=== PATIENT | female | born 1970 | race Caucasian/White ===

== ENCOUNTER 2025-09-08 09:25 | Emergency (ER) | payer MEDICARE, SELFPAY ==
[2025-09-08 09:52] VITALS: BP 161/98; PULSE 98; TEMP 36.6; O2SAT 100; BMI 20.7
[2025-09-08 10:50] VITALS: BP 156/94; PULSE 92; TEMP 37.1; O2SAT 98
--- NOTE | 2025-09-08 11:31 | ED.GENADUL1 ---
HPI HPI - General Adult General Chief complaint: Fever Stated complaint: FEVER Time Seen by Provider: 09/08/25 11:25 Source: patient Mode of arrival: walk-in Limitations: no limitations History of Present Illness HPI narrative: 54-year-old female presents for fever which began last night. She does not have a headache or cough or vomiting or abdominal pain. No dysuria. Separately she has a pimple on the left side of her face that she states she got from some bad make-up and she is worried about that because it was draining some pus. No known ill contacts. No shortness of breath. Related Data Home Medications ?Medication ?Instructions ?Recorded ?Confirmed aripiprazole 10 mg tablet 10 mg PO DAILY 09/08/25 09/08/25 estradiol 1 mg tablet 1 mg PO DAILY 09/08/25 09/08/25 lamotrigine 200 mg tablet 200 mg PO BID 09/08/25 09/08/25 metoprolol succinate 25 mg 25 mg PO DAILY 09/08/25 09/08/25 tablet,extended release 24 hr paroxetine HCl 40 mg tablet 40 mg PO DAILY 09/08/25 09/08/25 Previous Rx's ?Medication ?Instructions ?Recorded sulfamethoxazole 800 1 tab PO BID 10 days #20 tabs 09/08/25 mg-trimethoprim 160 mg tablet (Bactrim DS) Allergies Allergy/AdvReac Type Severity Reaction Status Date / Time shellfish derived Allergy Severe Anaphylaxis Verified 09/08/25 09:51 codeine AdvReac Severe Nausea Verified 09/08/25 09:51 Penicillins AdvReac Severe Nausea Verified 09/08/25 09:50 Review of Systems ROS Narrative A ten point review of systems is negative except as noted above. [facility] Medical History (Updated 09/08/25 @ 11:31 by Franklin Vivas MD) HTN (hypertension) ?I10 - Essential (primary) hypertension (ICD-10) Anxiety ?F41.9 - Anxiety disorder, unspecified (ICD-10) Social History Little interest or pleasure in doing things: not at all Feeling down, depressed, or hopeless: not at all Exam Narrative Exam Narrative: Nurses note and vital signs reviewed General:The patient appears well and in no apparent distress.Patient is resting comfortably on cart. Skin:Warm, dry, no pallor noted.There is no rash noted. Small pimple is noted on the left chin area. No abscess present. No drainage. Head:Normocephalic, atraumatic Eye: Normal conjunctiva, no drainage Ears, Nose, Mouth, and Throat: oral mucosa is moist. Nares patent. Cardiovascular:Regular Rate and Rhythm Respiratory:Patient is in no distress, no accessory muscle use, lungs are clear to auscultation, no wheezing, rales or rhonchi Back:non-tender GI: Soft and nontender Musculoskeletal: The patient has no evidence of calf tenderness, no pitting edema, symmetrical pulses noted bilaterally Neurological:A&O, normal speech Psychiatric:Cooperative Constitutional Vital Signs, click to edit/add: Last Vital Signs Temp 98.8 F 09/08/25 10:50 Pulse 92 H 09/08/25 10:50 Resp 16 09/08/25 10:50 BP 156/94 H 09/08/25 10:50 Pulse Ox 98 09/08/25 10:50 O2 Del Method Room Air 09/08/25 09:52 Course Vital Signs Vital signs: Vital Signs Temperature 97.9 F 09/08/25 09:52 Pulse Rate 98 H 09/08/25 09:52 Respiratory Rate 20 09/08/25 09:52 Blood Pressure 161/98 H 09/08/25 09:52 Pulse Oximetry 100 09/08/25 09:52 Oxygen Delivery Method Room Air 09/08/25 09:52 Temperature 98.8 F 09/08/25 10:50 Pulse Rate 92 H 09/08/25 10:50 Respiratory Rate 16 09/08/25 10:50 Blood Pressure 156/94 H 09/08/25 10:50 Pulse Oximetry 98 09/08/25 10:50 Oxygen Delivery Method Room Air 09/08/25 09:52 Medical Decision Making [facility] Narrative Medical decision making narrative: My clinical impression is that she has a viral illness and she was offered COVID and influenza test but does not feel that she needs them. Separately she has this pimple on her face and she is concerned about so she will be put on Bactrim. Treatment diagnosis and follow-up were discussed with the patient. Differential Diagnosis Differential Diagnosis: Viral illness, COVID, influenza Discharge Plan Discharge Chief Complaint: Fever Clinical Impression: Viral illness Patient Disposition: Home, Self-Care Prescriptions / Home Meds: New sulfamethoxazole-trimethoprim [Bactrim DS] 800-160 mg tablet 1 tab PO BID 10 Days Qty: 20 0RF No Action aripiprazole 10 mg tablet 10 mg PO DAILY estradiol 1 mg tablet 1 mg PO DAILY lamotrigine 200 mg tablet 200 mg PO BID metoprolol succinate 25 mg tablet extended release 24 hr 25 mg PO DAILY paroxetine HCl 40 mg tablet 40 mg PO DAILY Print Language: Mongolian Instructions: Viral Syndrome (ED) Referrals: Tamika Cintron [employer] [Primary Care Provider] - 1 week
== END 2025-09-08 11:47 | disposition home or self-care (01) ==
PROVIDERS: Emergency Provider Emergency Medicine; PCP Nurse Practitioner Family
DX: B34.9 Viral infection, unspecified (principal); R23.8 Other skin changes
CPT/HCPCS: 99283

== ENCOUNTER 2025-10-07 09:13 | Outpatient (OUT) | payer MEDICARE, SELFPAY ==
--- OUTSIDE RECORDS SUMMARY | 2025-10-07 09:16 | XMS_ITS | Clinical Summary ---
Author Organization [facility] Healthcare Address [address] [place] [address] Care Team Providers Care Film Processor Name Role Phone Vinnie Ibarra MD Primary Care Provider [phone] Allergies Active AllergyReactionsCriticalityNoted DateCommentsCodeineNausea Only,RashLow 05/08/2016Erythromycin Base05/08/2016 Other Reaction(s): Other CAN take ZITHROMAX....EES causes Dizziness, GI upset and fainting PenicillinsNausea Only,UjncTrz1605/08/2016Shellfish Protein-Containing Drug Ahbuxhpc08/16/2025 Medications MedicationSigDispense QuantityRefillsLast FilledStart DateEnd DateStatus ARIPiprazole (Abilify) 10 MG tablet Take 10 mg by mouth5Active cyclobenzaprine (Flexeril) 10 MG tablet Take 10 mg by mouth5Active estradiol (Estrace) 1 MG tablet 1 mg5Active lamoTRIgine (LaMICtal) 200 MG tablet Take 200 mg by mouth5Active LORazepam (Ativan) 0.5 MG tablet 0.5 mg5Active metoprolol succinate XL (Toprol-XL) 50 MG 24 hr tablet Take 50 mg by mouth5Active PARoxetine (Paxil) 40 MG tablet 40 mg5Active predniSONE (Deltasone) 10 MG tablet Indications:Low back pain, unspecified back pain laterality, unspecified chronicity, unspecified whether sciatica presentTake 5 tabs p.o. daily x3 days Take 4 tabs p.o. daily x3 days Take 3 tabs p.o. daily x3 days Take 2tabs p.o. daily x3 days Take 1 tab p.o. daily x3 days 45 tablet 5Active Active Problems No known active problems Social History Tobacco UseTypesPacks/DayYears UsedDateSmoking Tobacco: Every DayCigarettes Smokeless Tobacco: Never Tobacco Cessation:Ready to Q uit: Not Asked; Counseling Given: Not Answered Alcohol UseStandard Drinks/WeekCommentsYes0 (1 standard drink = 0.6 oz pure alcohol)beer ocassionallyCommentsUnknownSex and Gender InformationValue Date RecordedSex Assigned at BirthNot on fileLegal WvgDacytx49/10/2025 9:13 AM EDTGender IdentityNot on fileSexual OrientationNot on file Last Filed Vital Signs Vital SignReadingTime TakenCommentsBlood Pressure--Pulse--Temperature-- Respiratory Rate--Oxygen Saturation--Inhaled Oxygen Concentration--Gyrwfv73.9 kg (132 lb)02/04/2025 1:13 PM JQKPewnya110.6 cm (5' 6 )02/04/2025 1:13 PM EDTBody Mass Index21.31002/04/2025 1:13 PM EDT Plan of Treatment DateTypeDepartmentCare Team (Latest Contact Info)Xzjhqykgqhw39/28/2026 11:20 AM ESTOffice Visit [facility] [address] [place] [phone] Elvira Avila MD [address] [place] [address] Health MaintenanceDue DateLast DoneCommentsCT Przzpypyyaax98/26/1973FIT-DNA 1972FIT1972FOBT1972 0352Njgtahmuinubn55/26/1973Pap Smear1993 Cervical Cancer Rkdvgfkng51/26/2003HPV/Svyuke6311/16/2002COVID-19 Vaccine ( season)/06/2022, 11/12/2021, 03/01/2021, Additional history existsInfluenza Vaccine (#1)511, 08/24/2022, 11/12/2021, Additional history sorazoVwpmsucpx82/03/106319/12/2024, 12/16/2024, 04/02/2024, Additional history talyzxPmdaebhlhny73/27/933522/, 4Colorectal Cancer Kinslqcor09/27/2034Pneumococcal Vaccine: Pediatrics (0 to 5 Years) and At-Risk Patients (6 to 64 Years)Aged OutNo longer eligible based on patient's age to complete this topic Insurance Care Teams Team MemberRelationshipSpecialtyStart DateEnd Vinnie Ibarra MD [address] [place] [address] PCP - GeneralFamily Medicine01/29/25
== END 2025-10-07 09:14 | disposition home or self-care (01) ==
LOC: PST 09:13
PROVIDERS: PCP Nurse Practitioner Family; Visit Provider Surgery
DX: Z01.818 Encounter for other preprocedural examination (principal); K62.5 Hemorrhage of anus and rectum

== ENCOUNTER 2025-10-20 09:27 | Emergency (ER) | payer MEDICARE, MEDICAID, SELFPAY ==
[2025-10-20 09:36] VITALS: BP 149/89; PULSE 96; TEMP 36.8; O2SAT 98; BMI 21.0
--- NOTE | 2025-10-20 09:47 | ED.GENADUL1 ---
HPI HPI - General Adult General Chief complaint: Dizziness Stated complaint: DIZZY, NAUSEA, RINGING EARS Time Seen by Provider: 10/20/25 09:39 Source: patient Mode of arrival: walk-in History of Present Illness HPI narrative: 54-year-old female presents to the emergency department for pressure on the right side of the head. She has had it since last night. No trauma or fever. She has not had any sore throat or ear pain or cough or fever. She talked to her doctor who told her to come to the emergency department to get checked. Related Data Home Medications ?Medication ?Instructions ?Recorded ?Confirmed aripiprazole 10 mg tablet 10 mg PO DAILY 09/08/25 10/20/25 estradiol 1 mg tablet 1 mg PO DAILY 09/08/25 10/20/25 lamotrigine 200 mg tablet 200 mg PO BID 09/08/25 10/20/25 metoprolol succinate 25 mg 25 mg PO DAILY 09/08/25 10/20/25 tablet,extended release 24 hr paroxetine HCl 40 mg tablet 40 mg PO DAILY 09/08/25 10/20/25 cyclobenzaprine 10 mg tablet 10 mg PO Q8H 10/07/25 10/20/25 lorazepam 0.5 mg tablet 0.5 mg PO DAILY PRN anxiety 10/07/25 10/20/25 ibuprofen 600 mg tablet 600 mg PO Q8H PRN pain 10/20/25 10/20/25 Previous Rx's ?Medication ?Instructions ?Recorded amoxicillin 500 mg capsule 500 mg PO TID 10 days #30 caps 10/20/25 Allergies Allergy/AdvReac Type Severity Reaction Status Date / Time shellfish derived Allergy Severe Anaphylaxis Verified 10/20/25 09:35 erythromycin base Allergy nausea, Verified 10/20/25 09:35 syncope sulfamethoxazole (From Allergy Abdominal Verified 10/20/25 09:35 Bactrim) Pain trimethoprim (From Bactrim) Allergy Abdominal Verified 10/20/25 09:35 Pain codeine AdvReac Severe Nausea Verified 10/20/25 09:35 Penicillins AdvReac Severe Nausea Verified 10/20/25 09:35 Review of Systems ROS Narrative A ten point review of systems is negative except as noted above. [facility] History (Updated 10/20/25 @ 10:33 by Franklin Vivas MD) Seizure ?R56.9 - Unspecified convulsions (ICD-10) Rectal bleeding ?K62.5 - Hemorrhage of anus and rectum (ICD-10) Fibromyalgia ?M79.7 - Fibromyalgia (ICD-10) Back pain ?M54.9 - Dorsalgia, unspecified (ICD-10) Arthritis ?M19.90 - Unspecified osteoarthritis, unspecified site (ICD-10) History of blood transfusion ?Z92.89 - Personal history of other medical treatment (ICD-10) Depression ?F32.A - Depression, unspecified (ICD-10) Bipolar disorder ?F31.9 - Bipolar disorder, unspecified (ICD-10) Panic attacks ?F41.0 - Panic disorder [episodic paroxysmal anxiety] (ICD-10) GERD (gastroesophageal reflux disease) ?K21.9 - Gastro-esophageal reflux disease without esophagitis (ICD-10) HTN (hypertension) ?I10 - Essential (primary) hypertension (ICD-10) Anxiety ?F41.9 - Anxiety disorder, unspecified (ICD-10) Surgical History (Updated 10/07/25 @ 09:31 by Mignon Caro NP) History of esophagogastroduodenoscopy (EGD) ?Z98.890 - Other specified postprocedural states (ICD-10) History of José Miguel fundoplication ?Z98.890 - Other specified postprocedural states (ICD-10) History of foot surgery ?Z98.890 - Other specified postprocedural states (ICD-10) History of arthroscopy of knee ?Z98.890 - Other specified postprocedural states (ICD-10) History of laparoscopy ?Z98.890 - Other specified postprocedural states (ICD-10) History of cholecystectomy ?Z90.49 - Acquired absence of other specified parts of digestive tract (ICD-10) History of section ?Z98.891 - History of uterine scar from previous surgery (ICD-10) History of breast biopsy ?Z98.890 - Other specified postprocedural states (ICD-10) H/O bilateral oophorectomy ?Z90.722 - Acquired absence of ovaries, bilateral (ICD-10) History of appendectomy ?Z90.49 - Acquired absence of other specified parts of digestive tract (ICD-10) History of hysterectomy ?Z90.710 - Acquired absence of both cervix and uterus (ICD-10) History of bilateral salpingectomy ?Z90.79 - Acquired absence of other genital organ(s) (ICD-10) History of colonoscopy ?Z98.890 - Other specified postprocedural states (ICD-10) Family History (Updated 10/07/25 @ 09:21 by Mignon Caro NP) Other Family history of cancer Family history of hypertension Social History (Updated 10/07/25 @ 09:16 by Mignon Caro NP) Within the past year, how often did you have a drink containing alcohol: 2-4 times a month Smoking status: Current every day smoker What tobacco products do you use: cigarettes Cigarettes per day: 10 Years smoked: 30 Smoking pack-years: 15.00 Non-prescribed substance use: denies use Highest level of school completed/degree received: high school graduate Little interest or pleasure in doing things: not at all Feeling down, depressed, or hopeless: not at all Exam Narrative Exam Narrative: Nurses note and vital signs reviewed General:The patient appears well and in no apparent distress.Patient is resting comfortably on cart, sitting upright. Skin:Warm, dry, no pallor noted.There is no rash noted. Head:Normocephalic, atraumatic Eye: Normal conjunctiva, no drainage Ears, Nose, Mouth, and Throat: oral mucosa is moist. Nares patent. Right TM is normal with no erythema. External canal is normal with no cerumen. There is some cerumen in the left ear canal. No facial swelling or erythema. No pharyngeal erythema or exudate. Cardiovascular:Regular Rate and Rhythm Respiratory:Patient is in no distress, no accessory muscle use, lungs are clear to auscultation, no wheezing, rales or rhonchi Back:non-tender GI: Soft and nontender Musculoskeletal: The patient has no evidence of calf tenderness, no pitting edema, symmetrical pulses noted bilaterally Neurological:A&O, normal speech Psychiatric:Cooperative Constitutional Vital Signs, click to edit/add: Last Vital Signs Temp 98.2 F 10/20/25 09:36 Pulse 96 H 10/20/25 09:36 Resp 16 10/20/25 09:36 BP 149/89 H 10/20/25 09:36 Pulse Ox 98 10/20/25 09:36 O2 Del Method Room Air 10/20/25 09:36 Course Vital Signs Vital signs: Vital Signs Temperature 98.2 F 10/20/25 09:36 Pulse Rate 96 H 10/20/25 09:36 Respiratory Rate 16 10/20/25 09:36 Blood Pressure 149/89 H 10/20/25 09:36 Pulse Oximetry 98 10/20/25 09:36 Oxygen Delivery Method Room Air 10/20/25 09:36 Temperature 98.2 F 10/20/25 09:36 Pulse Rate 96 H 10/20/25 09:36 Respiratory Rate 16 10/20/25 09:36 Blood Pressure 149/89 H 10/20/25 09:36 Pulse Oximetry 98 10/20/25 09:36 Oxygen Delivery Method Room Air 10/20/25 09:36 Medical Decision Making MDM Narrative Medical decision making narrative: Sphenoid sinusitis is identified and the patient is prescribed amoxicillin. Treatment diagnosis and follow-up were discussed with the patient. Differential Diagnosis Differential Diagnosis: Sinusitis, ear infection, stress Imaging Data CT scan - head: Radiologist's impression: ITS Impressions Head CT 10/20/25 10:12 IMPRESSION: MILD RIGHT SPHENOID SINUSITIS. NO ACUTE INTRACRANIAL ABNORMALITY. Impression dictated by: Maria E Nicole M.D. 10/20/2025 10:27 AM Dictation Location: [place] [address] Electronically authenticated by: [id number] Y Date: 10/20/2025 10:27 Discharge Plan Discharge Chief Complaint: Dizziness Clinical Impression: Sphenoid sinusitis Patient Disposition: Home, Self-Care Time of Disposition Decision: 10:33 Condition: Good Mode of Transportation: Private Vehicle Prescriptions / Home Meds: New amoxicillin 500 mg capsule 500 mg PO TID 10 Days Qty: 30 0RF No Action aripiprazole 10 mg tablet 10 mg PO DAILY estradiol 1 mg tablet 1 mg PO DAILY lamotrigine 200 mg tablet 200 mg PO BID metoprolol succinate 25 mg tablet extended release 24 hr 25 mg PO DAILY paroxetine HCl 40 mg tablet 40 mg PO DAILY ibuprofen 600 mg tablet 600 mg PO Q8H PRN (Reason: pain) lorazepam 0.5 mg tablet 0.5 mg PO DAILY PRN (Reason: anxiety) cyclobenzaprine 10 mg tablet 10 mg PO Q8H Print Language: Zambian Instructions: Sinusitis (ED) Referrals: MAYE YAÑEZ D.O., M.S. [Primary Care Provider] - 1 week
--- NOTE | 2025-10-20 10:12 | CT_ITS ---
The [address] [address] Patient Name: ISAIAS REYNOLDS MRN: [id number] date: 1970 Sex: F Assigned Patient Location: ER Current Patient Location: .[facility] Accession/Order Number: [id number] Exam Date: 10/20/2025 10:11 Report Date: 10/20/2025 10:27 At the request of: NANDA BYERS MD Procedure: CT head/brain wo con CT BRAIN WITHOUT CONTRAST: CLINICAL HISTORY: right sided ear and head pressure. Dizziness and nausea COMPARISON: None TECHNIQUE: Contiguous axial unenhanced images were obtained through the brain. This CT exam was performed using one or more following dose reduction techniques: Automated exposure control, adjustment of the mA and/or kV according to patient size, or use of iterative reconstruction technique. FINDINGS: The ventricles are normal in size and position. There are no areas of abnormal attenuation. There is no hemorrhage, mass effect or extra-axial collections. A small amount of fluid is present within the right sphenoid sinus. The remaining imaged paranasal sinuses and mastoid air cells are clear. CT/CT head/brain wo con IMPRESSION: MILD RIGHT SPHENOID SINUSITIS. NO ACUTE INTRACRANIAL ABNORMALITY. Impression dictated by: Maria E Nicole M.D. 10/20/2025 10:27 AM Dictation Location: [place] [address] Electronically authenticated by: [id number] Y Date: 10/20/2025 10:27
--- OUTSIDE RECORDS SUMMARY | 2025-10-20 10:27 | XMS_ITS | Clinical Summary ---
Author Organization [facility] Healthcare Address [address] [place] [address] Care Team Providers Care Speech Therapist Name Role Phone Vinnie Ibarra MD Primary Care Provider [phone] Allergies Active AllergyReactionsCriticalityNoted DateCommentsCodeineNausea Only,RashLow 05/08/2016Erythromycin Base05/08/2016 Other Reaction(s): Other CAN take ZITHROMAX....EES causes Dizziness, GI upset and fainting PenicillinsNausea Only,OtroJsu1305/08/2016Shellfish Protein-Containing Drug Dzpvzwyz60/16/2025 Medications MedicationSigDispense QuantityRefillsLast FilledStart DateEnd DateStatus ARIPiprazole [...] Date RecordedSex Assigned at BirthNot on fileLegal CzmNwclse02/10/2025 9:13 AM EDTGender IdentityNot on fileSexual OrientationNot on file Last Filed Vital Signs Vital SignReadingTime TakenCommentsBlood Pressure--Pulse--Temperature-- Respiratory Rate--Oxygen Saturation--Inhaled Oxygen Concentration--Ojlvfb02.9 kg (132 lb)02/04/2025 1:13 PM IELEueigr761.6 cm (5' 6 )02/04/2025 1:13 PM EDTBody Mass Index21.31002/04/2025 1:13 PM EDT Plan of Treatment DateTypeDepartmentCare Team (Latest Contact Info)Yvyhfjjpwpp90/28/2026 11:20 AM ESTOffice Visit [facility] [address] [place] [id number] Elvira Avila MD [address] [place] [address] Health MaintenanceDue DateLast DoneCommentsCT Udmvocrirkpj82/26/1973FIT-DNA 1972FIT1972FOBT1972 5468Irnpmrmzubwbx18/26/1973Pap Smear1993 Cervical Cancer Bzlwwshhy06/26/2003HPV/Zouqfy8411/16/2002Influenza Vaccine (#1) 511/10/2022, 08/24/2022, 11/12/2021, Additional history existsMammogram 603/12/2024, 12/16/2024, 04/02/2024, Additional history exists Klfppozcnyq87/27/536556/, 02/11/2024olorectal Cancer Zqptngubj75/27/2034 Pneumococcal Vaccine: Pediatrics (0 to 5 Years) and At-Risk Patients (6 to 64 Years)Aged OutNo longer eligible based on patient's age to complete [place] [address] Care Teams Team MemberRelationshipSpecialtyStart DateEnd Date Vinnie Ibarra MD [address] [place] [address] PCP - GeneralFamily Medicine01/29/25
== END 2025-10-20 10:57 | disposition home or self-care (01) ==
PROVIDERS: Emergency Provider Emergency Medicine; PCP Student in an Organized Health Care Education/Training Program
DX: J32.3 Chronic sphenoidal sinusitis (principal); F17.210 Nicotine dependence, cigarettes, uncomplicated
CPT/HCPCS: 70450; 99284